=== PATIENT | female | born 1975 | race Caucasian/White ===

== ENCOUNTER → 2020-01-30 | Outpatient (CLI) | payer MEDICARE | END | disposition home or self-care (01) | LOC: CFH 13:35 | PROVIDERS: ATTEND Family Medicine | DX: C50.912 Malignant neoplasm of unspecified site of left female breast (principal); N63.10 Unspecified lump in the right breast, unspecified quadrant | CPT/HCPCS: 76642; 77066; G0279 ==

== ENCOUNTER → 2020-04-27 | Outpatient (CLI) | payer MEDICARE | END | disposition home or self-care (01) | LOC: CARD 08:10 | PROVIDERS: ATTEND Family Medicine | DX: G56.01 Carpal tunnel syndrome, right upper limb (principal); E11.42 Type 2 diabetes mellitus with diabetic polyneuropathy; M79.10 Myalgia, unspecified site; I45.9 Conduction disorder, unspecified | CPT/HCPCS: 95886; 95911 ==

== ENCOUNTER → 2020-10-10 | Outpatient (CLI) | payer MEDICARE, BC | END | disposition home or self-care (01) | LOC: CFH 08:41 | PROVIDERS: ATTEND Internal Medicine Hematology & Oncology | DX: C50.812 Malignant neoplasm of overlapping sites of left female breast (principal); R92.2 Inconclusive mammogram | CPT/HCPCS: 76641 ==

== ENCOUNTER → 2020-12-31 | Outpatient (CLI) | payer MEDICARE, BC ==
[~2020-12-31] MED LIST: BREX2TAB PO; DULA0.75 IN; GABA300C PO; LISI-167 PO; METF500T17 PO; RIZA10TA20 PO; ROSU5TAB PO; TAMO20TA PO; VENL150T PO
[2020-12-31 07:45] LABS: HCT (SEDRATE) 40.6 % (34.6-47.8)
[2020-12-31 07:55] LABS: ALANINE AMINOTRANSFERASE 29 U/L (12-78); ALBUMIN 3.1 g/dL (3.4-5.0); ANION GAP 10 mmol/L (5-15); CALCIUM 9.6 mg/dL (8.5-10.1); CHLORIDE 104 mmol/L (98-107); CHOLESTEROL, TOTAL 119 mg/dL (140-239); CREATININE 0.86 mg/dL (0.55-1.02)
[2020-12-31 08:06] LABS: ALKALINE PHOSPHATASE 91 U/L (45-117); BILIRUBIN,TOTAL 0.4 mg/dL (0.2-1.0); CHOL/HDL RATIO 3.7; HDL CHOL % 27 % (28-40); HDL CHOLESTEROL (DIRECT) 32 mg/dL (40-60); LDL CHOLESTEROL,CALCULATED 49 mg/dL (54-169); LDL/HDL RATIO 1.5 (0.5-3.0); TOTAL PROTEIN 7.9 g/dL (6.4-8.2); TRIGLYCERIDES 189 mg/dL (50-200); VLDL CHOLESTEROL 38 mg/dL (0-25)
[2020-12-31 08:10] LABS: C-REACTIVE PROTEIN, QUANT 1.3 mg/dL (0.02-0.49)
[2020-12-31 08:23] LABS: FREE T4 (FREE THYROXINE) 0.95 ng/dL (0.76-1.46)
[2020-12-31 08:28] LABS: BASOPHILS % (AUTO) 0 % (0-1); EOSINOPHILS % (AUTO) 4 % (1-7); LYMPHOCYTES % (AUTO) 28 % (22-44); MEAN CORPUSCULAR HEMOGLOBIN 27.7 pg (27.0-34.8); MEAN CORPUSCULAR HGB CONC 33.4 g/dL (32.4-35.8); MEAN PLATELET VOLUME 7.5 fL (7.4-10.4); MONOCYTES % (AUTO) 6 % (2-9); NEUTROPHILS % (AUTO) 62 % (42-75); PLATELET COUNT 343 x10^3/uL (130-400); RED BLOOD COUNT 4.96 x10^6/uL (3.82-5.3); RED CELL DISTRIBUTION WIDTH 13.7 % (9.6-15.2)
== END | disposition home or self-care (01) ==
LOC: LAB 07:11
PROVIDERS: ATTEND Registered Nurse
DX: Z13.29 Encounter for screening for other suspected endocrine disorder (principal); F33.1 Major depressive disorder, recurrent, moderate; E78.2 Mixed hyperlipidemia; E11.42 Type 2 diabetes mellitus with diabetic polyneuropathy; M25.59 Pain in other specified joint
CPT/HCPCS: 36415; 80053; 80061; 82043; 82306; 82550; 82570; 83036; 84436; 84439; 84443; 84481; 85025; 85651; 86038; 86140; 86200; 86430

== ENCOUNTER → 2021-01-02 | Outpatient (CLI) | payer MEDICARE, BC ==
[2021-01-02 15:28] LABS: ALBUMIN 2.9 g/dL (3.4-5.0); ANION GAP 11 mmol/L (5-15); CALCIUM 8.8 mg/dL (8.5-10.1); CHLORIDE 104 mmol/L (98-107)
[2021-01-02 15:31] LABS: ALANINE AMINOTRANSFERASE 29 U/L (12-78); ALKALINE PHOSPHATASE 89 U/L (45-117); BILIRUBIN,TOTAL 0.2 mg/dL (0.2-1.0); CREATININE 0.77 mg/dL (0.55-1.02); TOTAL PROTEIN 7.3 g/dL (6.4-8.2)
== END | disposition home or self-care (01) ==
LOC: STAR 14:06
PROVIDERS: ATTEND Obstetrics & Gynecology Female Pelvic Medicine and Reconstructive Surgery
DX: Z01.818 Encounter for other preprocedural examination (principal); N92.6 Irregular menstruation, unspecified; N94.6 Dysmenorrhea, unspecified; R10.2 Pelvic and perineal pain; N81.10 Cystocele, unspecified; N39.3 Stress incontinence (female) (male)
CPT/HCPCS: 36415; 80053; 93005

== ENCOUNTER 2021-01-07 05:31 | Day surgery (SDC) | payer MEDICARE, BC ==
[~2021-01-07] VITALS: Ht 165.1 cm; Wt 97.7 kg
[2021-01-07 06:16] VITALS: BP 130/92
[2021-01-07 06:28] LABS: HCG UR SG 1.028 (1.003-1.030)
[2021-01-07] MEDS ORDERED: CHLORHEXIDINE 15 ML UDC PO ONE (06:30)
[2021-01-07] MEDS ORDERED: LACTATED RINGERS 1,000 ML IV SCH (06:30)
[2021-01-07] MEDS ORDERED: EPINEPHRINE 1 MG/ML, 1ML ONE (06:35)
[2021-01-07] MEDS ORDERED: GENTAMICIN 80 MG/2 ML ONE (06:35)
[2021-01-07] MEDS ORDERED: VANCOMYCIN 500 MG ONE (06:35)
[2021-01-07] MEDS ORDERED: LIDOCAINE/PF 1%, 30ML ONE ×2 (06:35→06:36)
[2021-01-07] MEDS ORDERED: BUPIVACAINE/PF 0.25% ONE ×2 (06:39→09:39)
[2021-01-07] MEDS ORDERED: INSULIN REGULAR 100 UNITS/ML, 3ML VIAL SQ-INSULIN ONE ×4 (07:00→11:15)
[2021-01-07] MEDS ORDERED: INSULIN SINGLE DOSE, ER ONE ×4 (07:01→11:23)
[2021-01-07] MEDS ORDERED: LIDOCAINE-MPF 2% ,5ML ONE (07:03)
[2021-01-07] MEDS ORDERED: FENTANYL PF 250 MCG/5ML ONE (07:04)
[2021-01-07] MEDS ORDERED: MIDAZOLAM 1 MG/ML, 2ML ONE (07:04)
[2021-01-07] MEDS ORDERED: hydrALAzine 20 MG/ML, 1ML IV PRN (07:30)
[2021-01-07] MEDS ORDERED: EPHEDRINE 50 MG/ML, 1ML IVPush PRN (07:30)
[2021-01-07] MEDS ORDERED: HYDROmorphone 1 MG/ML, 1ML INJ IVPush PRN (07:30)
[2021-01-07] MEDS ORDERED: LABETALOL 5MG/ML, 20ML IV PRN (07:30)
[2021-01-07] MEDS ORDERED: PROMETHAZINE 25 MG/ML, 1ML IVPush PRN (07:30)
[2021-01-07] MEDS ORDERED: ACETAMINOPHEN 325 MG TABLET PO PRN (07:30)
[2021-01-07] MEDS ORDERED: ONDANSETRON 2MG/ML, 2ML IVPush PRN (07:30)
[2021-01-07] MEDS ORDERED: MEPERIDINE/PF 25MG/0.5ML IVPush PRN (07:30)
[2021-01-07] MEDS ORDERED: SUCCINYLCHOLINE 20 MG/ML, 10ML ONE (07:41)
[2021-01-07] MEDS ORDERED: ROCURONIUM 10MG/ML,5ML ONE (07:41)
[2021-01-07] MEDS ORDERED: CEFAZOLIN 1,000 MG ONE (07:41)
[2021-01-07] MEDS ORDERED: GLYCOPYRROLATE 0.2MG/1ML, 5ML ONE (07:41)
[2021-01-07] MEDS ORDERED: DEXAMETHASONE 4 MG/ML, 1ML ONE (07:41)
[2021-01-07] MEDS ORDERED: NEOSTIGMINE 1 MG/ML, 10ML ONE (07:41)
[2021-01-07] MEDS ORDERED: PROPOFOL 10 MG/ML, 20ML ONE (07:41)
[2021-01-07] MEDS ORDERED: ONDANSETRON 2MG/ML, 2ML ONE (07:41)
[2021-01-07] MEDS ORDERED: KETOROLAC 30 MG/1 ML ONE (07:41)
[2021-01-07] MEDS ORDERED: hydrALAzine 20 MG/ML, 1ML ONE (08:07)
[2021-01-07] MEDS ORDERED: FUROSEMIDE 20 MG/2 ML ONE (08:45)
[2021-01-07] MEDS ORDERED: FENTANYL PF 100 MCG/2ML ONE ×2 (09:09→09:56)
[2021-01-07] MEDS ORDERED: OXYcodone 5 MG/5 ML ORAL.SOL UDC ONE (09:55)
[2021-01-07] MEDS ORDERED: ACETAMINOPHEN 650 MG/20.3 ML UDC ONE (09:56)
[2021-01-07] MEDS: OXYcodone 5 MG/5 ML ORAL.SOL UDC PO PRN ×2 (09:58→12:14)
[2021-01-07] MEDS: FENTANYL PF 100 MCG/2ML IV PRN ×2 (10:01→10:12)
[2021-01-07] MEDS ORDERED: MEPERIDINE/PF 25MG/ML,1ML ONE (10:25)
== END 2021-01-07 14:10 | disposition home or self-care (01) ==
LOC: OUT 05:31
PROVIDERS: ATTEND Obstetrics & Gynecology Female Pelvic Medicine and Reconstructive Surgery
DX: N92.6 Irregular menstruation, unspecified (principal); N94.6 Dysmenorrhea, unspecified; R10.2 Pelvic and perineal pain; N39.3 Stress incontinence (female) (male); N81.11 Cystocele, midline; N94.19 Other specified dyspareunia; N81.89 Other female genital prolapse; D25.9 Leiomyoma of uterus, unspecified; G43.909 Migraine, unspecified, not intractable, without status migrainosus; F32.9 Major depressive disorder, single episode, unspecified; F41.9 Anxiety disorder, unspecified; E11.9 Type 2 diabetes mellitus without complications; Z98.890 Other specified postprocedural states; Z79.899 Other long term (current) drug therapy
CPT/HCPCS: 57265; 57288; 58552; 81025; 82962; 88307; C1771; J0171; J0330; J0360; J0690; J1100; J1580; J1815; J1885; J1940; J2175; J2250; J2405; J2704; J2710; J3010; J3370; J7120